=== PATIENT | female | born 1975 | race Caucasian/White ===

== ENCOUNTER 2022-07-29 10:33 | Oncology outpatient (recurring) (ONCR) | payer MEDICAID, SELFPAY | END 2022-08-16 23:59 | disposition home or self-care (01) | PROVIDERS: Family Provider Social Worker Clinical; Visit Provider Internal Medicine Medical Oncology | DX: R91.8 Other nonspecific abnormal finding of lung field (principal); R53.83 Other fatigue; R05.3 Chronic cough; J44.9 Chronic obstructive pulmonary disease, unspecified | CPT/HCPCS: 99203 ==

== ENCOUNTER 2024-02-13 11:21 | Emergency (ER) | payer MEDICAID, SELFPAY ==
[2024-02-13 11:33] VITALS: BP 147/86; PULSE 87; RESP 16; TEMP 37; O2SAT 95; BMI 29.2
--- NOTE | 2024-02-13 11:41 | W.ED.DENTAL ---
HPI - Dental/Oral General: Chief complaint: Dental/Oral Stated complaint: tooth pain Time Seen by Provider: 02/13/24 11:31 Source: patient Mode of arrival: ambulatory Limitations: no limitations History of Present Illness: Patient is a 48-year-old female who presents to ED today with complaint of dental pain involving her right upper teeth as well as adjacent swelling. Patient has noticed symptoms over the past few days. She states she has been busy caring for her mother thus has not had time to see a dentist. She does not routinely obtain dental care. She is not having a headache or fevers. Onset (ago): day(s) Duration: constant Severity: moderate Relieving factors: nothing Exacerbating factors: nothing Context: poor dental care Associated symptoms: Reports no associated symptoms; Denies ear or mastoid pain, fever(s) or odynophagia Treatment prior to arrival: none Related Data Previous Rx's Medication Instructions Recorded penicillin V potassium 500 mg 500 mg PO Q8H 7 days #21 tabs 02/13/24 tablet Allergies Allergy/AdvReac Type Severity Reaction Status Date / Time No Known Allergies Allergy Verified 02/13/24 11:36 Review of Systems Const: Denies: fever(s), chills, body aches, fatigue or malaise ENMT: Reports: mouth pain, dental pain and sinus pain; Denies: throat pain, uvular edema, enlarged tonsils, odynophagia, hoarseness, swelling of lips/tongue, oral sores, bleeding gums or ear or mastoid pain Card: Denies: chest pain Resp: Denies: dyspnea GI: Denies: nausea or vomiting Musc: Denies: neck pain Neuro: Denies: headache(s), dizziness or confusion PFSH ED PFSH: Medical History History of migraine headaches Anxiety COPD (chronic obstructive pulmonary disease) Pulmonary nodules At increased risk of breast cancer Surgical History History of sinus surgery History of unilateral oophorectomy History of hysterectomy with unilateral oophorectomy Family History Mother Small cell lung cancer Colon cancer Father Mesothelioma Sister Breast cancer Social History (Reviewed 02/13/24 @ 12:01 by ANT Gao Smoking and tobacco/nicotine status: current every day tobacco/nicotine user cigarettes Packs smoked per day: 1.5 Years cigarettes smoked: 24 Alcohol intake: never Substance/Drug Use: never Physical Exam Const: COMMON NORMALS: no acute distress, average body habitus, patient oriented x3, no limitations, healthy appearing, alert and well nourished HENMT: COMMON NORMALS: Normal external nose present FACE & SINUS: edema; no crepitus, no erythema and no fluctuance FACE & SINUS IMAGES: 1. mild edema/tenderness NOSE: Normal external nose present MOUTH: Normal oral and palatal mucosa present, lip normal, tongue normal and Normal salivary glands and ducts present; no audible dysphonia TEETH & GINGIVA: Yes caries and Yes poor dentition TEETH & GINGIVA IMAGES: 1. decay/missing teeth THROAT: posterior oropharynx normal and tonsils normal; no uvular edema Eye: COMMON NORMALS: Equal, round and reactive pupils present and EOMs intact bilaterally GENERAL EYE: appearance normal, both eyes and all related structures and normal light reflex PUPIL: Yes Equal, round and reactive pupils present DIRECT OPHTHALMOSCOPY: Yes normal light reflex Neck/C-Spine: COMMON NORMALS: full ROM, no lymphadenopathy and no meningeal signs GENERAL: Yes normal visual inspection, No anterior neck swelling and No submandibular swelling Resp: COMMON NORMALS: normal respiratory effort and clear to auscultation bilaterally AUSCULTATION: clear to auscultation bilaterally Cardio: COMMON NORMALS: regular rate and regular rhythm RATE: regular rate RHYTHM: regular rhythm Neuro: COMMON NORMALS: patient oriented x3 SENSORIUM/ORIENTATION: Yes alert MENINGEAL SIGNS: Yes no meningeal signs Course Vital Signs: Vital signs: Vital Signs Temperature 98.6 F 02/13/24 11:33 Pulse Rate 87 02/13/24 11:55 Respiratory Rate 16 02/13/24 11:55 Blood Pressure 118/77 02/13/24 11:55 Pulse Oximetry 95 02/13/24 11:55 Oxygen Delivery Me thod Room Air 02/13/24 11:33 [facility] - Dental/Oral Medical Decision Making Patient here for evolving dental infection. No obvious drainable abscess at this time. She will be covered with antibiotics. Recommend prompt dental follow-up. Return to ED precautions given. Differential Diagnosis Likely dental caries, toothache and dental abscess Medical Records I reviewed the patient's medical records. No radiology studies performed this visit Discharge Plan Discharge Patient Disposition: Home Clinical Impression: Dental infection Condition: Stable Prescriptions: New penicillin V potassium 500 mg tablet 500 mg PO Q8H 7 Days Qty: 21 0RF Discharge Orders: Discharge ED (Routine); Ordered 02/13/24 Ordered By: Madhavi Martinez Referrals: Larry Rosario MD [Primary Care Provider] - Patient Instructions: Dental Caries (Cavities), Toothache (ED), Dental Abscess Activity Restrictions/Additional Instructions: Please follow-up with a dentist as soon as possible. You may return to the emergency department for worsening pain or swelling, difficulty eating or drinking or swallowing, severe headache or fevers, or any other concerns you may have. Coding Level of Care Code ED [employer] for Jacob Hawley
[2024-02-13 11:55] VITALS: BP 118/77; PULSE 87; RESP 16; O2SAT 95
== END 2024-02-13 11:55 | disposition home or self-care (01) ==
PROVIDERS: Emergency Provider Physician Assistant; PCP Nurse Practitioner Family
DX: K04.7 Periapical abscess without sinus (principal); F17.210 Nicotine dependence, cigarettes, uncomplicated; J44.9 Chronic obstructive pulmonary disease, unspecified
CPT/HCPCS: 99283

== ENCOUNTER 2024-02-15 20:01 | Emergency (ER) | payer MEDICAID, SELFPAY ==
[2024-02-15 20:06] VITALS: BP 124/81; PULSE 92; RESP 18; TEMP 36.8; O2SAT 98; BMI 29.2
--- NOTE | 2024-02-15 20:19 | W.ED.DENTAL ---
HPI - Dental/Oral General: Chief complaint: Dental/Oral Stated complaint: Absessed Tooth Time Seen by Provider: 02/15/24 20:11 Source: patient Mode of arrival: ambulatory Limitations: no limitations History of Present Illness: 48-year-old female states that she has had dental pain to her right upper molar been on antibiotics states she has now developed an abscess increased pain she denies any other complaints at this time denies any fevers denies any difficulty swallowing. Associated symptoms: Denies fever(s) Related Data Previous Rx's Medication Instructions Recorded penicillin V potassium 500 mg 500 mg PO Q8H 7 days #21 tabs 02/13/24 tablet hydrocodone 5 mg-acetaminophen 325 1 tab PO Q6H PRN pain #14 tabs 02/15/24 mg tablet Allergies Allergy/AdvReac Type Severity Reaction Status Date / Time No Known Allergies Allergy Verified 02/15/24 20:09 Review of Systems Const: Denies: fever(s), chills, body aches or change in appetite ENMT: Reports: mouth pain; Denies: throat pain or dental pain Card: Denies: chest pain Resp: Denies: dyspnea GI: Denies: abdominal pain, nausea, vomiting or diarrhea Musc: Denies: neck pain or back pain Skin/Breast: Denies: rash Neuro: Denies: headache(s) PFSH ED PFSH: Medical History History of migraine headaches Anxiety COPD (chronic obstructive pulmonary disease) Pulmonary nodules At increased risk of breast cancer Surgical History History of sinus surgery History of unilateral oophorectomy History of hysterectomy with unilateral oophorectomy Family History Mother Small cell lung cancer Colon cancer Father Mesothelioma Sister Breast cancer Social History Smoking and tobacco/nicotine status: current every day tobacco/nicotine user cigarettes Packs smoked per day: 1.5 Years cigarettes smoked: 24 Alcohol intake: never Substance/Drug Use: never Physical Exam Const: COMMON NORMALS: no acute distress HENMT: COMMON NORMALS: normocephalic and atraumatic HEAD & SCALP: normocephalic and atraumatic OTHER: Abscess noted to right upper molar Eye: COMMON NORMALS: conjunctivae normal CONJUNCTIVA: Yes conjunctivae normal Chest: COMMONS NORMALS: normal inspection of the chest Resp: COMMON NORMALS: normal respiratory effort Extremity: COMMON NORMALS: normal to inspection Procedures Abscess I/D Site: other (dental) Side (if applicable): left Local Anesthetic: lidocaine 1% Amount of anesthesia used (mL): 8 Technique: incised with #11 blade Irrigation: No Packing used?: none Course Vital Signs: Vital signs: Vital Signs Temperature 98.2 F 02/15/24 20:06 Pulse Rate 92 02/15/24 20:06 Respiratory Rate 18 02/15/24 20:06 Blood Pressure 124/81 02/15/24 20:06 Pulse Oximetry 98 02/15/24 20:06 Oxygen Delivery Me thod Room Air 02/15/24 20:06 [facility]DM - Dental/Oral Medical Decision Making Patient presents with a dental abscess that was incised and drained in the ED she is continue antibiotics we will prescribe her pain meds she is follow-up with PCP return if worsening she understands agrees to plan. No radiology studies performed this visit Discharge Plan Discharge Patient Disposition: Home Clinical Impression: Dental abscess Condition: Stable Prescriptions: New hydrocodone-acetaminophen 5-325 mg tablet 1 tab PO Q6H PRN (Reason: pain) Qty: 14 0RF No Action penicillin V potassium 500 mg tablet 500 mg PO Q8H 7 Days Qty: 21 0RF Discharge Orders: Discharge ED (Routine); Ordered 02/15/24 Ordered By: Sagrario Umana Referrals: Larry oRsario MD [Primary Care Provider] - Discharge Diet: Advance as tolerated Discharge Activity: Resume usual activity Patient Instructions: Dental Abscess (ED), Opioid Safety Coding Level of Care Code ED [employer] for Jacob Hawley
[2024-02-15] MEDS: HYDROcodone-acetaminophen 5-325 mg Tablet 1 TAB PO (20:29)
[2024-02-15 20:33] VITALS: BP 130/81; PULSE 92; O2SAT 99
== END 2024-02-15 21:56 | disposition home or self-care (01) ==
PROVIDERS: Emergency Provider Emergency Medicine; PCP Nurse Practitioner Family
DX: K04.7 Periapical abscess without sinus (principal); F17.210 Nicotine dependence, cigarettes, uncomplicated; J44.9 Chronic obstructive pulmonary disease, unspecified
CPT/HCPCS: 41800; 99283